=== PATIENT | male | born 1970 | race Caucasian/White ===

== ENCOUNTER 2024-09-02 18:51 | Emergency (ER) | payer OTHER, SELFPAY ==
[2024-09-02 18:53] VITALS: BP 198/133
[2024-09-02 19:04] VITALS: BP 146/100
[2024-09-02] MEDS: ADACEL 0.5 ML IM (19:07)
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
[2024-09-02 19:18] LABS: % Basophils 0.4 % (0-2); % Eosinophils 0.6 % (0-6); % Immature Granulocytes 0.5 % (0-0.5); % Lymphocytes 21.8 % (20.5-51.1); % Monocytes 13.8 % (1.7-9.3); % Neutrophils 62.9 % (42.2-75.2); Absolute Eosinophils 0.1 10^3/uL (0-0.7); Absolute Immature Granulocytes 0.1 10^3/uL (0-0.05); Absolute Lymphocytes 2.1 10^3/uL (1.2-3.4); Absolute Monocytes 1.3 10^3/uL (0.1-0.6); Absolute Neutrophils 6.1 10^3/uL (1.4-6.5); Hematocrit 43.1 % (39.0-52.0); Hemoglobin 15.2 g/dL (13.0-18.0); Mean Corp Hgb Conc. 35.3 g/dL (33.0-37.0); Mean Corpuscular Hgb 33.5 pg (27.0-31.0); Mean Corpuscular Volume 94.9 fL (80.0-94.0); Mean Platelet Volume 9.3 fL (7.4-10.4); Nucleated Red Blood Cells % 0 % (-); Platelet Count 226 10^3/uL (130-400); Red Blood Cell Count 4.54 10^6/uL (4.70-6.10); Red Cell Dist. Width 11.9 % (11.5-14.5); White Blood Cell Count 9.7 10^3/uL (4.8-10.8)
[2024-09-02 19:37] LABS: ALT (SGPT) 30 U/L (0-50); AST (SGOT) 46 U/L (17-59); Albumin 4.3 g/dl (3.5-5.0); Alkaline Phosphatase 57 U/L (38-126); Blood Urea Nitrogen 15 mg/dl (9-20); Calcium 9.2 mg/dl (8.4-10.2); Carbon Dioxide 26 mmol/L (22-30); Chloride 99 mmol/L (98-107); Glucose 121 mg/dl (70-99); Potassium 4.1 mmol/L (3.5-5.1); Sodium 136 mmol/L (135-145); Total Bilirubin 0.7 mg/dl (0.2-1.3); Total Protein 7.7 g/dl (6.3-8.2); eGFR > 60.00
[2024-09-02 21:14] VITALS: BP 142/89
[2024-09-02] MEDS: KEFLEX 500 MG PO (21:23)
== END 2024-09-02 21:35 | disposition home or self-care (01) ==
LOC: EMR 18:51
PROVIDERS: Physician Assistant; EMERGENCY PHYSICIAN Emergency Medicine
DX: S91.301A Unspecified open wound, right foot, initial encounter (principal); L03.115 Cellulitis of right lower limb; X19.XXXA Contact with other heat and hot substances, initial encounter; I10 Essential (primary) hypertension; Z23 Encounter for immunization
CPT/HCPCS: 90471; 99284; 73630; 80053; 85025; 87070; 87077; 87147; 87205; 90715; 93971

== ENCOUNTER 2024-10-06 18:57 | Emergency (ER) | payer OTHER, SELFPAY ==
[2024-10-06 19:06] VITALS: BP 131/86
[2024-10-06 19:30] LABS: % Basophils 0.2 % (0-2); % Eosinophils 0.5 % (0-6); % Immature Granulocytes 0.2 % (0-0.5); % Lymphocytes 37.2 % (20.5-51.1); % Monocytes 15.7 % (1.7-9.3); % Neutrophils 46.2 % (42.2-75.2); Absolute Lymphocytes 1.6 10^3/uL (1.2-3.4); Absolute Monocytes 0.7 10^3/uL (0.1-0.6); Hematocrit 37.7 % (39.0-52.0); Hemoglobin 13.4 g/dL (13.0-18.0); Mean Corp Hgb Conc. 35.5 g/dL (33.0-37.0); Mean Corpuscular Hgb 33.3 pg (27.0-31.0); Mean Corpuscular Volume 93.8 fL (80.0-94.0); Mean Platelet Volume 9.9 fL (7.4-10.4); Nucleated Red Blood Cells % 0 % (-); Platelet Count 181 10^3/uL (130-400); Red Blood Cell Count 4.02 10^6/uL (4.70-6.10); Red Cell Dist. Width 12.2 % (11.5-14.5); White Blood Cell Count 4.3 10^3/uL (4.8-10.8)
[2024-10-06 19:46] LABS: ALT (SGPT) 18 U/L (0-50); AST (SGOT) 28 U/L (17-59); Albumin 4.1 g/dl (3.5-5.0); Alkaline Phosphatase 51 U/L (38-126); Blood Urea Nitrogen 18 mg/dl (9-20); Calcium 8.4 mg/dl (8.4-10.2); Carbon Dioxide 26 mmol/L (22-30); Chloride 93 mmol/L (98-107); Glucose 105 mg/dl (70-99); Potassium 4.5 mmol/L (3.5-5.1); Sodium 129 mmol/L (135-145); Total Bilirubin 0.6 mg/dl (0.2-1.3); Total Protein 7.5 g/dl (6.3-8.2); eGFR > 60.00
[2024-10-06 23:05] VITALS: BMI 34.6
--- NOTE | 2024-10-06 23:29 | ED.GENMED ---
History of Present Illness
General
Chief Complaint: Swelling
Source: patient
Exam Limitations: none
Time Seen by Provider: 10/06/24 23:03
Nursing documentation reviewed up to this point in time: agreed with
History of Present Illness
History of Present Illness:
Pleasant 53-year-old male presents to the emergency department with right foot swelling great toe swelling. Patient was seen for a blister on the heel of his foot 1 month ago. Was diagnosed with cellulitis. He has been on cephalexin and Levaquin.
He has been doing appropriate wound care. On Thursday he noticed that his great toe has been swelling. Denies any pain. He reports no loss of sensation. Denies fever, chills, nausea or vomiting. He presents tonight because the swelling seems to
be increasing. Patient is not diabetic. 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
Past History
Past History
ED Past Medical History: HTN
Review of Systems
Review of Systems
Allergies reviewed?: Yes
All Other Systems: ROS reviewed and negative except as documented in HPI and ROS
Constitutional: Reports no symptoms
EENT: Reports no symptoms
Respiratory: Reports no symptoms
Cardiac: Reports no symptoms
ABD/GI: Reports no symptoms
: Reports no symptoms
Musculoskeletal: Reports joint pain
Skin: Reports no symptoms
Neurological: Reports no symptoms
Endocrine: Reports no symptoms
Hematologic/Lymphatic: Reports no symptoms
Psychiatric: Reports no symptoms
Phy Exam
General Physical Exam
General Presentation: well appearing and no apparent distress
General age: appears stated age
General Skin: warm and dry
General Habitus: normal and obese
General Mental: alert
General Hydration: appears well hydrated
Cardiovascular Exam
Cardiovascular Exam: regular rate/rhythm
Pulmonary Exam
Pulmonary Exam: lungs clear and no respiratory distress
Neurological Exam
Neurological Exam: alert and oriented x3
Musculoskeletal Exam
Musculoskeletal Exam: full ROM, joint swelling and neuro vasc intact
Skin Exam
Skin Exam: other (Well-healing ulcer to the heel of the foot. Swelling of the right great)
Psychiatric Exam
Psychiatric Exam: normal mood/affect
Scores
Heart Failure Risk
Heart Failure Risk Score: Not Applicable
Course
Orders/Labs/Results
Orders:
Orders
10/06/24 19:21
CMP [Comprehensive Metabolic Panel] Urgent
Complete Blood Count/With Diff Urgent
10/06/24 23:28
Foot, Right 3 View [CR Foot - Right Min 3 Views] Urgent
Comment:
Reason For Exam: foot ulcer, very swollen great toe
Abnormal Lab Results
10/06/24
19:21
WBC 4.3 L 10^3/uL
(4.8-10.8)
RBC 4.02 L 10^6/uL
(4.70-6.10)
Hct 37.7 L %
(39.0-52.0)
MCH 33.3 H pg
(27.0-31.0)
Absolute Monos (auto) 0.7 H 10^3/uL
(0.1-0.6)
Monocytes % 15.7 H %
(1.7-9.3)
Sodium 129 L mmol/L
(135-145)
Chloride 93 L mmol/L
(98-107)
Glucose 105 H mg/dl
(70-99)
10/06/24 19:21
10/06/24 19:21
Vital Signs
Initial and Last Documented VS:
Initial Vital Signs
Temp Pulse Resp BP Pulse Ox
98.4 F 94 16 131/86 100
10/06/24 19:06 10/06/24 19:06 10/06/24 19:06 10/06/24 19:06 10/06/24 19:06
Last Documented Vital Signs
Temp Pulse Resp BP Pulse Ox
98.4 F 94 16 117/84 100
10/06/24 19:06 10/06/24 19:06 10/06/24 19:06 10/07/24 00:10 10/07/24 00:10
*Critical Care Note
Total Time (30-74mins, 75-104mins- exclusive of procedures): Not Applicable
Update Note
Update Note:
Spoke with Dr. Daisy Pavon, podiatry. We reviewed all x-rays from this visit in the past visit. Discussed lab work. Patient to be discharged home.
ED Attending Note
-
Portions of this chart may have been created with voice recognition software.� Occasional wrong word or��sound alike� substitutions may have occurred due to the inherent limitations of voice recognition software.
Discharge Plan
Departure
Patient Disposition: Home (Routine Discharge)
Date of Disposition: 10/07/24
Time of Disposition: 00:11
Patient with high blood pressure during this ER visit?: Yes
Discharge Problem:
Swelling of toe of right foot, Wound of foot
Instructions: Swelling, Wound care - ED discharge instructions, BLOOD PRESSURE
Prescriptions:
No Action
cephalexin 500 mg capsule
500 mg PO QID 10 Days Qty: 40 0RF
levofloxacin 750 mg tablet
750 mg PO DAILY 7 Days Qty: 7 0RF
Referrals:
NONE,* [Family Provider] -
Daisy Pavon, DPM [Active] - Tomorrow (As discussed, please show up at the office at 8:10 in the morning for follow-up appointment.)
Activity Restrictions/Additional Instructions:
Please bring the CD of the x-ray as well as your discharge paperwork to your appointment tomorrow morning.
It was a pleasure meeting you and taking part in your care. We hope for your continued healing and wellness.
Please read discharge instructions in their entirety. However, they are for general education and may not describe your exact diagnosis at discharge. Information on your ER visit and medical conditions were discussed with you along with appropriate
follow up information...
If indicated, please take your medications as instructed and indicated on discharge paperwork.
Please schedule a follow up appointment as directed. Call to schedule an appointment
Please return to the emergency department with ANY change in, persisting, or worsening of symptoms. If any of your symptoms do not improve, or persist, or become more severe within 6-12 hours, please return to the emergency department for further
care.
Please return to the emergency department if you develop a headache, neck pain/stiffness, fever greater than 100.4F, chest pain, shortness of breath, persistent nausea, vomiting, slurred speech, difficulty walking, numbness/tingling, weakness, signs
of infection or any other symptoms that are worrisome to you.
If you have any questions or concerns please do not hesitate to call the Hospital at or E-mail me directly at [email or web address]
Interventions
Interventions:
*Risk Screen - Suicide Last Done: 10/06/24 19:06
*General Assessment Last Done: 10/06/24 19:06
*Neglect/Abuse Screening Last Done: 10/06/24 19:06
ED- Fall Risk Assessment Last Done: 10/07/24 00:15
*ED COVID-19 Vaccine History Last Done: 10/06/24 19:06
*Nursing Disposition Last Done: 10/07/24 00:15
ED- Cardiac Assessment Last Done: 10/06/24 23:05
ED- Pulmonary Assessment Last Done: 10/06/24 23:05
ED-Skin Assessment Last Done: 10/06/24 23:05
Discharge Date and Time
Discharge Date/Time: 10/07/24 00:52
Print Language: OCCITAN
[2024-10-07 00:10] VITALS: BP 117/84
== END 2024-10-07 00:52 | disposition home or self-care (01) ==
LOC: EMR 18:57
PROVIDERS: Emergency Medicine; EMERGENCY PHYSICIAN Student in an Organized Health Care Education/Training Program
DX: R22.41 Localized swelling, mass and lump, right lower limb (principal); S91.301A Unspecified open wound, right foot, initial encounter; X58.XXXA Exposure to other specified factors, initial encounter; I10 Essential (primary) hypertension
CPT/HCPCS: 99283; 73630; 80053; 85025

== ENCOUNTER → 2025-07-31 15:41 | Outpatient (REF) | payer OTHER, SELFPAY | LOC: HWRAD 15:41 | PROVIDERS: ATTENDING PHYSICIAN Podiatrist Foot & Ankle Surgery | DX: L97.414 Non-pressure chronic ulcer of right heel and midfoot with necrosis of bone (principal) | CPT/HCPCS: 73630 ==